=== PATIENT | male | born 1980 | race Caucasian/White ===

== ENCOUNTER 2016-12-19 08:50 | Emergency (ER) | payer SELFPAY ==
[~2016-12-19] VITALS: Ht 170.2 cm; Wt 90.7 kg
[2016-12-19 10:08] VITALS: BP 141/90
--- NOTE | 2016-12-19 10:28 | PHYS DOC ---
Past Medical History Past Medical History: No Pertinent History Past Surgical History: No Surgical History Alcohol Use: None Drug Use: Marijuana Adult General Chief Complaint Chief Complaint: LACERATION/AVULSION HPI HPI Patient is a 36 year old male who presents with left forehead laceration, patient states he was moving a table, he placed it against a wall when it tipped over and hit him on the forehead. Patient denies any loss of consciousness. Review of Systems Review of Systems Constitutional: Denies fever or chills [] Eyes: Denies change in visual acuity, redness, or eye pain [] : Denies dysuria or hematuria [] Musculoskeletal: Denies back pain or joint pain [] Integument: Left forehead laceration Neurologic: Denies headache, focal weakness or sensory changes [] Endocrine: Denies polyuria or polydipsia [] Current Medications Current Medications Current Medications Medications (Trade) Dose Ordered Sig/Saurav Start Time Stop Time Status Last Admin Dose Admin Lidocaine/Sodium Bicarbonate (Buffered Lidocaine 1%) 20 ml 1X ONCE 12/19/16 10:30 12/19/16 10:31 DC 12/19/16 10:36 20 ML Allergies Allergies Allergies Coded Allergies Type Severity Reaction Last Updated Verified No Known Drug Allergies 12/19/16 No Physical Exam Physical Exam Constitutional: Well developed, well nourished, no acute distress, non-toxic appearance. [] HENT: Normocephalic, atraumatic, bilateral external ears normal, oropharynx moist, no oral exudates, nose normal. [] Skin: Left 4 with a laceration approximately 4 cm long. Bleeding is well controlled. Back: No tenderness, no CVA tenderness. [] Extremities: No tenderness, no cyanosis, no clubbing, ROM intact, no edema. [] Neurologic: Alert and oriented X 3, normal motor function, normal sensory function, no focal deficits noted. [] Psychologic: Affect normal, judgement normal, mood normal. [] Current Patient Data Vital Signs Vital Signs Date Time Temp Pulse Resp B/P Pulse Ox O2 Delivery O2 Flow Rate FiO2 12/19/16 10:08 97.9 75 18 97 Room Air 97.9 EKG EKG [] Radiology/Procedures Radiology/Procedures Indication: [] Forehead laceration Procedure: The patient was placed in the appropriate position and anesthesia around the laceration was 1% buffered lidocaine. The area was then cleaned with 10 ML of normal saline and Betadine. The laceration was closed with 8 interrupted sutures using 6. 0 Prolene. The area was covered with gauze. Total repaired wound length: Approximately 4 cm long Other Items: None The patient tolerated the procedure well Complications: None Course & Med Decision Making Course & Med Decision Making Pertinent Labs and Imaging studies reviewed. (See chart for details) Patient is in the ED with left forehead laceration. Tetanus is up-to-date. Laceration was cleaned and closed by me as noted in procedures. The wound care instructions as well as return precautions provided. Follow-up with the ED 7-10 days for suture removal. Dragon Disclaimer Dragon Disclaimer This electronic medical record was generated, in whole or in part, using a voice recognition dictation system. Departure Departure Impression: Primary Impression: Forehead laceration Additional Impression: Forehead contusion Disposition: 01 HOME, SELF-CARE Condition: STABLE Referrals: NO PCP (PCP) Follow-up with the ED or your own doctor in 7-10 days for suture removal Patient Instructions: Laceration Care, Adult Additional Instructions: You have left forehead laceration. Keep the area clean and dry. Come back to the ED in 7-10 days and follow-up with your doctor for suture removal. Apply Neosporin to the area twice a day. Problem Qualifiers Primary Impression: Forehead laceration Encounter type: initial encounter Qualified Code: S01.81XA - Laceration without foreign body of other part of head, initial encounter Additional Impression: Forehead contusion Encounter type: initial encounter Qualified Code: S00.83XA - Contusion of other part of head, initial encounter JOE VIL[employer] Dec 19, 2016 10:28
[2016-12-19] MEDS ORDERED: LIDOCAINE 1% / SOD BICARB 8.4% 20 ML VIAL. IJ ONE (10:30)
== END 2016-12-19 12:24 | disposition home or self-care (01) ==
LOC: ER 08:50
DX: S01.81XA Laceration without foreign body of other part of head, initial encounter (principal); F12.10 Cannabis abuse, uncomplicated; W22.8XXA Striking against or struck by other objects, initial encounter; Y93.89 Activity, other specified; Y92.89 Other specified places as the place of occurrence of the external cause; Y99.8 Other external cause status
CPT/HCPCS: 12013; 99283-25